=== PATIENT | male | born 1935 | race Caucasian/White ===

== ENCOUNTER 2021-03-06 15:48 | Inpatient (IN) | payer MEDICARE ==
[~2021-03-06] VITALS: Ht 182.9 cm; Wt 93.4 kg
[2021-03-06 16:16] VITALS: BP 139/80
[2021-03-06 19:02] LABS: URINE BILIRUBIN NEGATIVE (Negative); URINE BLOOD TRACE (Negative); URINE CLARITY CLEAR; URINE COLOR YELLOW; URINE GLUCOSE-RANDOM NEGATIVE (Negative); URINE KETONES 1+ (Negative); URINE LEUKOCYTES NEGATIVE (Negative); URINE NITRITE NEGATIVE (Negative); URINE PROTEIN NEGATIVE (Negative); URINE SPECIFIC GRAVITY 1.025 (1.005-1.030); URINE UROBILINOGEN 0.2 E.U./dl (0.2-1.0)
[2021-03-06] MEDS ORDERED: SERTRALINE HCL100 MG PO (19:59)
[2021-03-06] MEDS ORDERED: ARICEPT10 M1 PO (19:59)
[2021-03-06] MEDS ORDERED: LIPITOR10 MG PO (20:00)
[2021-03-06 20:01] LABS: ABSOLUTE BASOPHILS 0.1 thou/uL (0.0-0.2); ABSOLUTE LYMPHOCYTES 1.2 thou/uL (0.8-5.3); ABSOLUTE NEUTROPHILS 9.4 thou/uL (1.6-8.1); BASOPHILS 0.6 %; EOSINOPHILS 0.2 %; HEMATOCRIT 45.2 % (42.0-52.0); HEMOGLOBIN 14.9 gm/dL (14.0-18.0); LYMPHOCYTES 10.4 %; MCV 96.8 fL (80.0-100.0); MONOCYTES 8.6 %; MPV 6.6 fl. (7.2-11.1); NUCLEATED RBCS 0 /100WBC; PLATELET COUNT* 274 thou/uL (150-400); POLYS 80.2 %; RBC 4.66 mil/uL (4.50-6.00); RDW-CV 14.1 % (10.5-14.5); WBC 11.8 thou/uL (4.0-11.0)
[2021-03-06 20:16] LABS: CALCIUM 9.5 mg/dL (8.5-10.1); CREATININE 1.1 mg/dL (0.6-1.3)
[2021-03-06 20:28] LABS: ALBUMIN 3.7 g/dL (3.4-5.0); TOTAL BILIRUBIN 0.9 mg/dL (<0.1-1.0); TOTAL PROTEIN 6.8 g/dL (6.4-8.2)
[2021-03-06 21:06] LABS: INFLUENZA A ANTIGEN Negative (Negative); INFLUENZA B ANTIGEN Negative (Negative)
[2021-03-06 22:00] VITALS: BP 126/64
[2021-03-07 02:00] VITALS: BP 116/51
[2021-03-07 06:00] VITALS: BP 135/66
[2021-03-07 09:45] VITALS: BP 114/74
--- NOTE | 2021-03-07 11:19 | EKG ---
[place] [address] ELECTROCARDIOGRAM REPORT Name: JONATHAN LOVELACE Room: [place] [address] ADM IN [facility]#: [id number] Admission: 03/07/21 Attend Phys: Donnie Stockton Discharge: Date of : 33 Date of Service: 03/06/211954 Report #: [id number] THIS REPORT FOR: //name// [facility] ED Test Date: 2021-03-06 Test Time: 19:55:04 Pat Name: JONATHAN FISHLANDEN Department: Room: [facility] Gender: M Roof Foreman: : 1935 Requested By: Harjeet Diamond Order Number: [id number] MD: Rudy Major Measurements Intervals [place] Rate: 67 P: 77 OR: 175 QRS: 67 QRSD: 90 T: 65 QT: 387 QTc: 409 Interpretive Statements Sinus rhythm Atrial premature complexes No previous ECG available for comparison Electronically Signed On 03-07-2021 11:18:51 [employer] by Rudy Major [email or web address] <ELECTRONICALLY SIGNED> By: Rudy Major MD, FAC 03/07/21 1118 [id number] Rudy Major MD, [facility] /EPI
[2021-03-07 13:00] VITALS: BP 183/88
[2021-03-07 16:45] VITALS: BP 140/77
[2021-03-07 21:00] VITALS: BP 157/68
[2021-03-08 01:00] VITALS: BP 188/89
[2021-03-08 05:00] VITALS: BP 168/98
[2021-03-08 08:26] LABS: HEMOGLOBIN 13.9 gm/dL (14.0-18.0); MCH 31.8 pg (26.0-34.0); MCHC 33.1 g/dL (28.0-37.0); MCV 96.1 fL (80.0-100.0); MPV 6.4 fl. (7.2-11.1); RBC 4.37 mil/uL (4.50-6.00); RDW-CV 14.4 % (10.5-14.5); WBC 14.1 thou/uL (4.0-11.0)
[2021-03-08 09:00] VITALS: BP 158/101
[2021-03-08 09:40] LABS: ALBUMIN 3.1 g/dL (3.4-5.0); CALCIUM 8.9 mg/dL (8.5-10.1); CREATININE 0.9 mg/dL (0.6-1.3); POTASSIUM 4.2 mmol/L (3.5-5.1); TOTAL BILIRUBIN 0.5 mg/dL (<0.1-1.0); TOTAL PROTEIN 5.5 g/dL (6.4-8.2)
[2021-03-08 13:00] VITALS: BP 115/70
[2021-03-08 17:00] VITALS: BP 118/67
[2021-03-08 21:00] VITALS: BP 141/80
[2021-03-09 01:00] VITALS: BP 148/75
[2021-03-09 05:00] VITALS: BP 138/57
[2021-03-09 07:24] LABS: HEMATOCRIT 39.4 % (42.0-52.0); HEMOGLOBIN 13.1 gm/dL (14.0-18.0); MCHC 33.3 g/dL (28.0-37.0); MCV 96.3 fL (80.0-100.0); MPV 6.6 fl. (7.2-11.1); RBC 4.09 mil/uL (4.50-6.00); RDW-CV 14.1 % (10.5-14.5); WBC 11.6 thou/uL (4.0-11.0)
[2021-03-09 07:39] LABS: ALBUMIN 2.7 g/dL (3.4-5.0); CALCIUM 8.7 mg/dL (8.5-10.1); MAGNESIUM 1.9 mg/dL (1.8-2.4); POTASSIUM 4.1 mmol/L (3.5-5.1); TOTAL BILIRUBIN 0.4 mg/dL (<0.1-1.0); TOTAL PROTEIN 5.5 g/dL (6.4-8.2)
[2021-03-09 09:00] VITALS: BP 152/81
[2021-03-09 13:00] VITALS: BP 151/100
[2021-03-09 17:00] VITALS: BP 171/86
[2021-03-09 21:00] VITALS: BP 171/86
[2021-03-10 01:00] VITALS: BP 169/70
[2021-03-10 05:00] VITALS: BP 159/84
[2021-03-10 09:00] VITALS: BP 142/74
[2021-03-10] MEDS ORDERED: MIRTAZAPINE15 M2 PO (09:00)
[2021-03-10] MEDS ORDERED: DOXYCYCLINE 10100 MG PO (09:00)
[2021-03-10] MEDS ORDERED: CEFDINIR300 MG PO (09:00)
[2021-03-10 09:50] VITALS: BP 159/84
[2021-03-10 10:26] VITALS: BP 100/58; BP 159/84
== END 2021-03-10 10:14 | disposition home or self-care (01) | DRG 177 ==
LOC: M.ERS 15:48 → M.TBA-ER 20:38
PROVIDERS: Emergency Medicine; Internal Medicine; ADMIT Internal Medicine; ATTEND Internal Medicine
DX: J15.6 Pneumonia due to other Gram-negative bacteria (principal); J96.01 Acute respiratory failure with hypoxia; G92.9 Unspecified toxic encephalopathy; F03.90 Unspecified dementia, unspecified severity, without behavioral disturbance, psychotic disturbance, mood disturbance, and anxiety; E78.5 Hyperlipidemia, unspecified; J06.9 Acute upper respiratory infection, unspecified; E86.0 Dehydration; J40 Bronchitis, not specified as acute or chronic; Z20.822 Contact with and (suspected) exposure to COVID-19; Z85.46 Personal history of malignant neoplasm of prostate; Z79.899 Other long term (current) drug therapy